=== PATIENT | female | born 1995 | race Caucasian/White ===

== ENCOUNTER 2017-04-19 05:01 | Emergency (ER) | payer OTHER ==
[~2017-04-19] VITALS: Ht 160 cm; Wt 63.5 kg
[2017-04-19 05:01] VITALS: BP 106/65
--- NOTE | 2017-04-19 05:38 | PHYS DOC ---
General Chief Complaint: EARACHE/EAR PAIN Stated Complaint: SORE THROAT,EAR PAIN X 2 DAYS Time Seen by MD: 05:04 Source: patient Exam Limitations: no limitations Problems: History of Present Illness Initial Comments 22-year-old female comes to the ED complaining of sore throat. Patient states that she's had a sore throat for the past few days, today pain is radiating to her ears. She's not been eating very much due to the discomfort but has maintained fluid intake. She has "swollen glands" chills and sweats no measured fevers. Irxo-yvk-rlaksce medications aren't helping and she denies prior history of mononucleosis. Timing/Duration: other Severity: severe Location: throat Prearrival Treatment: over the counter meds Modifying Factors: worse with coughing Associated Symptoms: fever, malaise, poor solids intake, sore throat Allergies: Coded Allergies: No Known Drug Allergies (Unverified , 04/19/17) Past Medical History Medical History: no pertinent history Surgical History: noncontributory Social History Smoker: non-smoker Alcohol: none Drugs: none Constitutional: see HPI Ears: see HPI, denies dizziness, denies tinnitus Nose: denies clots, denies congestion, denies epistaxis Throat: see HPI, denies neck stiffness, denies difficulty with fluids Respiratory: denies cough, denies shortness of breath, denies wheezing Gastrointestinal: denies diarrhea, denies nausea, denies vomiting Musculoskeletal: denies back pain, denies joint swelling, muscle pain, denies neck pain Physical Exam General Appearance: WD/WN, no apparent distress Eyes: bilateral eye normal inspection, bilateral eye PERRL, bilateral eye EOMI Ears: bilateral ear auricle normal, bilateral ear canal normal, bilateral ear TM normal Nose: normal inspection Mouth/Throat: other (pharynx is beefy red with exudate airway is patent) Neck: full range of motion, supple, lymphadenopathy (R), lymphadenopathy (L) Cardiovascular/Respiratory: normal peripheral pulses, no respiratory distress 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 [id number] Tylenol, ibuprofen, and analgesic throat sprays as needed. Aggressive hydration with Gatorade and water. Prescription: Zithromax Follow-up with your doctor in 7-10 days for recheck. Return to ED with new or changing symptoms. RUSLAN RODRIGUEZ DO Apr 19, 2017 05:38
[2017-04-19 05:57] LABS: MONONUCLEOSIS PATIENT NEGATIVE (NEGATIVE)
[2017-04-19] MEDS ORDERED: LIDO:MAALOX 1:1 20 ML SINGLE DOSE PO ONE (06:00)
[2017-04-19] MEDS ORDERED: AZIT250T PO (06:03)
[2017-04-19] MEDS ORDERED: AZITHROMYCIN 250 MG TABLET. PO ONE (06:30)
== END 2017-04-19 06:20 | disposition home or self-care (01) ==
LOC: ER 05:01
DX: J02.9 Acute pharyngitis, unspecified (principal)
CPT/HCPCS: 86308; 99283

== ENCOUNTER 2018-03-23 03:11 | Emergency (ER) | payer OTHER ==
[~2018-03-23] VITALS: Ht 160 cm; Wt 70.3 kg
[~2018-03-23 03:11] MED LIST: AZIT250T PO
[2018-03-23] MEDS ORDERED: predniSONE 10 MG TABLET PO ONE (03:15)
--- NOTE | 2018-03-23 03:23 | ED.ADGEN ---
Past History Past Medical History: No Pertinent History Past Surgical History Rotator cuff Alcohol Use: Occasionally Drug Use: None Adult General Chief Complaint Chief Complaint ".. I ve been sick since saturday..(.03/18) .. coughing, runny nose, congestion, discolored blood snot.. and sputum... I ve just moved back from [place].... " HPI HPI Patient is a 23 year old female who presents with above hx and complaints fever , ear pain chills, myalgia, arthralgia, pharyngitis, cough, congestion and malaise. Patient states symptoms been present since 03/18/18. Patient's pharyngitis and ear pain has been present for last 48 hours. No history immunosuppression. No specific ill contacts. Recent travel from [place]. Patient does not smoke. Pt. seen last year on 04/19/17 for similar symptoms. A shunt did not get flu vaccination this season. Review of Systems Review of Systems Constitutional: History fever or chills [] Eyes: Denies change in visual acuity, redness, or eye pain [] HENT: Hx nasal congestion and sore throat [] Respiratory: Hx cough and sputum Cardiovascular: No additional information not addressed in HPI [] GI: Denies abdominal pain, nausea, vomiting, bloody stools or diarrhea [] : Denies dysuria or hematuria [] Musculoskeletal: Myalgia and Arthralgia Integument: Denies rash or skin lesions [] Neurologic: Denies headache, focal weakness or sensory changes [] Endocrine: Denies polyuria or polydipsia [] All other systems were reviewed and found to be within normal limits, except as documented in this note. Family History Family History Non - contributor Current Medications Current Medications Current Medications Medications (Trade) Dose Ordered Sig/Zarina Start Time Stop Time Status Last Admin Dose Admin Albuterol Sulfate (Ventolin Hfa Inhaler) 2 puff 1X ONCE 03/23/18 04:30 03/23/18 04:31 DC 03/23/18 04:16 2 PUFF Diphenhydramine HCl (Benadryl) 25 mg STK-MED ONCE 03/23/18 03:33 03/23/18 03:35 DC Hydrocodone Bitartrate/ Ibuprofen (Vicoprofen 7.5-200) 1 tab STK-MED ONCE 03/23/18 03:33 03/23/18 03:35 DC Prednisone (Prednisone) 50 mg 1X ONCE 03/23/18 03:15 03/23/18 03:42 DC 03/23/18 03:32 50 MG Allergies Allergies Allergies Coded Allergies Type Severity Reaction Last Updated Verified No Known Drug Allergies 04/19/17 No Penicillin = edema Physical Exam Physical Exam Constitutional: Well developed, well nourished, moderate distress, non-toxic appearance. [] HENT: Normocephalic, atraumatic, bilateral external ears normal,TM fluid but no significant inflammation, oropharynx moist,injected pharynx, no oral exudates , nose swollen turbinates, rhinorrhea. Eyes: PERRLA, EOMI, conjunctiva normal, no discharge. [] Neck: Normal range of motion, no tenderness, supple, no stridor. [] Cardiovascular: Tachycardia Heart rate regular rhythm, no murmur [] Lungs & Thorax: Bilateral breath sounds few scattered wheezes on auscultation [ ]Non-productive cough. Abdomen: Bowel sounds normal, soft, no tenderness, no masses, no pulsatile masses. [] Skin: Warm, dry, no erythema, no rash. [] Back: No tenderness, no CVA tenderness. [] Extremities: No tenderness, no cyanosis, no clubbing, ROM intact, no edema. [] Neurologic: Alert and oriented X 3, normal motor function, normal sensory function, no focal deficits noted. [] Psychologic: Affect anxious, judgement normal, mood normal. [] Current Patient Data Vital Signs Vital Signs Date Time Temp Pulse Resp B/P (MAP) Pulse Ox O2 Delivery O2 Flow Rate FiO2 03/23/18 03:24 98.1 68 18 98 Room Air Lab Results Laboratory Tests Test 03/23/18 03:15 Influenza Type A (Rapid) Negative (NEGATIVE) Influenza Type B (Rapid) Negative (NEGATIVE) Group A Streptococcus Rapid Negative (NEGATIVE) EKG EKG [] Radiology/Procedures Radiology/Procedures [] Course & Med Decision Making Course & Med Decision Making Pertinent Labs and Imaging studies reviewed. (See chart for details). Gargle with Listerine 4 times a day. Push fluids. Take Tylenol or ibuprofen for discomfort and fever. Get adequate rest. Follow-up primary care. Benadryl 25-50 mg up 4 times a day may be helpful for drainage and congestion. Vicoprofen for marked discomfort. Use MDI two puffs four times a day. Return if any concerns. [] Final Impression Final Impression 1. Pharyngitis[] 2. Viral syndrome Dragon Disclaimer Dragon Disclaimer This electronic medical record was generated, in whole or in part, using a voice recognition dictation system. Dragon Disclaimer This chart was dictated in whole or in part using Voice Recognition software in a busy, high-work load, and often noisy Emergency Department environment. It may contain unintended and wholly unrecognized errors or omissions. Discharge Summary Visit Information Final Diagnosis Problems Medical Problems: (1) Pharyngitis Status: Acute (2) Viral syndrome Status: Acute Brief Hospital Course Allergies Allergies Coded Allergies Type Severity Reaction Last Updated Verified No Known Drug Allergies 04/19/17 No Vital Signs Vital Signs Date Time Temp Pulse Resp B/P (MAP) Pulse Ox O2 Delivery O2 Flow Rate FiO2 03/23/18 03:24 98.1 68 18 98 Room Air Lab Results Laboratory Tests Test 03/23/18 03:15 Influenza Type A (Rapid) Negative (NEGATIVE) Influenza Type B (Rapid) Negative (NEGATIVE) Group A Streptococcus Rapid Negative (NEGATIVE) Brief Hospital Course Ms. Paul is a 23 old female who presented with viral syndrome. Discharge Information Condition at Discharge: Improved, Stable Disposition/Orders: D/C to Home Dischare Medications Current Medications Prednisone (Prednisone) 50 mg 1X ONCE PO Last administered on 03/23/18at 03:32; Admin Dose 50 MG; Start 03/23/18 at 03:15; Stop 03/23/18 at 03:42; Status DC Hydrocodone Bitartrate/ Ibuprofen (Vicoprofen 7.5-200) 2 tab 1X ONCE PO Last administered on 03/23/18at 03:38; Admin Dose 2 TAB; Start 03/23/18 at 03:45; Stop 03/23/18 at 03:46; Status DC Diphenhydramine HCl (Benadryl) 50 mg 1X ONCE PO Last administered on 03/23/18at 03:37; Admin Dose 50 MG; Start 03/23/18 at 03:45; Stop 03/23/18 at 03:46; Status DC Diphenhydramine HCl (Benadryl) 25 mg STK-MED ONCE PO ; Start 03/23/18 at 03:33; Stop 03/23/18 at 03:35; Status DC Hydrocodone Bitartrate/ Ibuprofen (Vicoprofen 7.5-200) 1 tab STK-MED ONCE .ROUTE ; Start 03/23/18 at 03:33; Stop 03/23/18 at 03:35; Status DC Albuterol Sulfate (Ventolin Hfa Inhaler) 2 puff 1X ONCE INH Last administered on 03/23/18at 04:16; Admin Dose 2 PUFF; Start 03/23/18 at 04:30; Stop 03/23/18 at 04 :31; Status DC Active Scripts Active Hydrocodone-Ibuprofen 7.5-200 (Hydrocodone/Ibuprofen) 1 Each Tablet 1 Tab PO PRN Q6HRS PRN Zithromax (Azithromycin) 250 Mg Tablet 1 Pkg PO UD JEAN CLAUDE BARRERA MD Mar 23, 2018 03:23
[2018-03-23 03:24] VITALS: BP 110/66
[2018-03-23] MEDS ORDERED: HYDROcodon/IBUPROFEN 7.5/200MG 1 TAB TABLET ONE (03:33)
[2018-03-23] MEDS ORDERED: diphenhydrAMINE HCL 25 MG CAPSULE PO ONE ×2 (03:33→03:45)
[2018-03-23] MEDS ORDERED: HYDR-1179 PO (03:38)
[2018-03-23] MEDS ORDERED: HYDROcodon/IBUPROFEN 7.5/200MG 1 TAB TABLET PO ONE (03:45)
[2018-03-23 04:15] LABS: INFLUENZA A PATIENT NEGATIVE (NEGATIVE); INFLUENZA B PATIENT NEGATIVE (NEGATIVE)
[2018-03-23] MEDS ORDERED: ALBUTEROL SULFATE 8GM INHALER. INH ONE (04:30)
== END 2018-03-23 04:26 | disposition home or self-care (01) ==
LOC: ER 03:11
DX: B34.9 Viral infection, unspecified (principal); H92.03 Otalgia, bilateral
CPT/HCPCS: 87070; 87804; 87880; 94640; 99284; J7512; J7613; Q0163